=== PATIENT | male | born 1950 | race Caucasian/White ===

== ENCOUNTER 2017-10-14 18:25 | Inpatient (IN) ==
[2017-10-14] MEDS ORDERED: Morphine Inj 4 MG/ML Vial IV.PUSH ONE (18:30)
[2017-10-14] MEDS ORDERED: Sod Chloride 0.9% Inj 1,000 ML IV.SIG ONE (18:30)
--- NOTE | 2017-10-14 18:33 | ED ---
HPI General Chief Complaint: Abdominal Pain Stated Complaint: abd pain Time Seen by Provider: 10/14/17 18:30 Source: patient and EMS Mode of arrival: EMS Limitations: no limitations History of Present Illness HPI narrative: 66-year-old male patient with history of several days of coughing , not feeling well, diarrhea, presents to the ER brought in by EMS because of lower abdominal pains that he measures at a 10 out of 10 starting about 4 hours ago. He denies any vomiting, fevers, chest pains, or other symptoms. He does not know any exacerbating or relieving factors. Related Data Home Medications Medication Instructions Recorded Confirmed albuterol sulfate 0.63 mg INHALATION Q4-6H PRN 10/14/17 10/14/17 guaifenesin 200 mg PO DAILY 10/14/17 10/14/17 pseudoephedrine-guaifenesin 1 tab PO DAILY 10/14/17 10/14/17 [Mucinex D] tiotropium bromide [Spiriva with 1 cap INHALATION DAILY 10/14/17 10/14/17 HandiHaler] Allergies Allergy/AdvReac Type Severity Reaction Status Date / Time No Known Allergies Allergy Verified 10/14/17 19:56 Review of Systems ROS: all other systems reviewed are negative PMFSH History History Provided By: Patient Medical History Medical History COPD (chronic obstructive pulmonary disease) (Acute) Social History Social History Substance History: No History of Abuse Smoking Status: Current every day smoker Tobacco Type: Cigarettes How Often Do You Have a Drink Containing Alcohol: 2 to 4 times a month Recent Travel in [facility] within the Last 8 Weeks: No Exam Narrative Exam Narrative: GENERAL: Well-developed elderly white male patient currently in moderate distress. Awake and oriented 3. SKIN: Focused skin assessment warm/dry. HEAD: Atraumatic. Normocephalic. EYES: Pupils equal and round. No scleral icterus. No injection or drainage. ENT: No nasal bleeding or discharge. Mucous membranes pink and moist. NECK: Trachea midline. No JVD. CARDIOVASCULAR: Regular rate and rhythm. No murmur appreciated. RESPIRATORY: No accessory muscle use. Clear to auscultation. Breath sounds equal bilaterally. GASTROINTESTINAL: Abdomen soft, mild lower abdominal tenderness without guarding or rebound, nondistended. Hepatic and splenic margins not palpable. MUSCULOSKELETAL: No obvious deformities. No clubbing. No cyanosis. No edema. NEUROLOGICAL: Awake and alert. No obvious cranial nerve deficits. Motor grossly within normal limits. Normal speech. PSYCHIATRIC: Appropriate mood and affect; insight and judgment normal. Course Initial Documented Vital Signs Temperature 98.4 F 10/14/17 18:30 Pulse Rate 73 10/14/17 18:30 Respiratory Rate 18 10/14/17 18:30 Blood Pressure 187/71 H 10/14/17 18:30 Pulse Oximetry 95 10/14/17 18:30 Last Documented Vital Signs Temperature 98.4 F 10/14/17 18:30 Pulse Rate 73 10/14/17 18:42 Respiratory Rate 18 10/14/17 18:42 Blood Pressure 178/84 H 10/14/17 18:40 Pulse Oximetry 96 10/14/17 18:40 Medical Decision Making MDM Narrative Medical decision making narrative: Chest x-ray showing signs of a right basilar infiltrate questionable for underlying pneumonia. Lab work shows significant leukocytosis. CAT scan shows appendicitis. Case was discussed with Dr. Leslie who recommends patient be transferred to the main hospital for appendectomy. Patient is kept n.p.o. IV antibiotics were initiated for pneumonia after cultures have been drawn. Case was then discussed with Dr. Cook for admission. Differential Diagnosis Differential Diagnosis: Gastroenteritis versus diverticulitis versus UTI versus dehydration versus other acute intra-abdominal processes Lab Data Lab results reviewed: Yes I reviewed the patient's lab results. Result diagrams: 10/14/17 19:05 10/14/17 19:05 Lab Results 10/14/17 10/14/17 10/14/17 Range/Units 19:05 19:05 19:20 CBC w Diff Auto diff final WBC 14.7 H (4.0-11.0) th/mm3 RBC 4.83 (4.50-5.90) mil/mm3 Hgb 15.6 (13.0-17.0) gm/dL Hct 46.2 (39.0-51.0) % MCV 95.6 (80.0-100.0) fL MCH 32.3 (27.0-34.0) pg MCHC 33.8 (32.0-36.0) % RDW 13.2 (11.6-17.2) % Plt Count 242 (150-450) th/mm3 MPV 7.4 (7.0-11.0) fL Neut % (Auto) 91.7 H (16.0-70.0) % Lymph % (Auto) 3.8 L (9.0-44.0) % [place] % (Auto) 2.8 (0.0-8.0) % Eos % (Auto) 1.2 (0.0-4.0) % Baso % (Auto) 0.5 (0.0-2.0) % Neut # (Auto) 13.4 H (1.8-7.7) th/mm3 Lymph # (Auto) 0.6 L (1.0-4.8) th/mm3 [place]er # (Auto) 0.4 (0.0-0.9) th/mm3 Eos # (Auto) 0.2 (0.0-0.4) th/mm3 Baso # (Auto) 0.1 (0.0-0.2) th/mm3 WBC Differential . Differential Comment . Sodium 134 L (136-145) meq/L Potassium 4.3 (3.5-5.1) meq/L Chloride 97 L (98-107) meq/L Carbon Dioxide 29.0 (21.0-32.0) meq/L Anion Gap 8 (5-15) meq/L BUN 11 (7-18) mg/dL Creatinine 0.74 (0.60-1.30) mg/dL Estimated GFR Greater than 89 (>89) mL/min Random Glucose 114 H (74-106) mg/dL Calcium 9.2 (8.5-10.1) mg/dL Total Bilirubin 0.6 (0.2-1.0) mg/dL AST 20 (15-37) U/L ALT 21 (12-78) U/L Alkaline Phosphatase 82 (45-117) U/L Total Protein 7.5 (6.4-8.2) g/dL Albumin 3.6 (3.4-5.0) g/dL Lipase 49 L (73-393) U/L Urine Color Yellow (Yellw/Straw) Urine Clarity Clear (Clear) Urine pH 6.0 (5.0-8.5) Ur Specific [place] 1.025 (1.002-1.035) Urine Protein Negative (Neg-Trace) mg/dL Urine Glucose (UA) Negative (Negative) mg/dL Urine Ketones 80 or greater (Negative) mg/dL Urine Occult Blood Trace (Negative) Urine Nitrate Negative (Negative) Urine Bilirubin Negative (Negative) Urine Urobilinogen 0.2 (Less than 2) mg/dL Ur Leukocyte Esterase Negative (Negative) Urine RBC 0-3 (0-3) /hpf Urine WBC 0-5 (0-5) /hpf Ur Squamous Epith Cells 0-5 (0-5) /hpf Micro UA Comment Culture not ind Urine Culture Comments Culture not ind Imaging Data Attestation: I personally reviewed and interpreted this imaging study as follows : Radiologist's impression: Abdomen/Pelvis CT 10/14/17 18:30 CONCLUSION: 1. Abnormal appearance of the appendix indicating acute appendicitis. No evidence of abscess or free air. 2. Lower lobe bronchiectasis and tree-in-bud opacity of the lungs. Findings may represent atypical mycobacterial infection, age-indeterminate or chronic aspiration. 3. Pars interarticularis defects of L5. 4. Mild distal abdominal aortic aneurysm. Chest X-Ray 10/14/17 18:30 CONCLUSION: Mild right lung base parenchymal opacity indicating mild consolidation versus atelectasis. ECG Data Attestation: I personally reviewed and interpreted this ECG as follows: Interpretation: EKG shows normal sinus rhythm at a rate of [address] elevations or depressions. Discharge Plan Discharge Disposition Patient Disposition: 30 Still Patient Discharge Condition Condition: Stable Discharge Details Anticipated Discharge Date: 10/14/17 Diagnosis: Acute appendicitis, Pneumonia Physicians Team ED Provider: Carmenza Newby Primary Care Provider: [facility],Physician 's Rxs /Orders / Referrals /Forms Prescriptions: No Action albuterol sulfate 0.63 mg/3 mL Solution For Nebulization 0.63 mg INHALATION Q4-6H PRN (Reason: Shortness Of Breath) RF: 0 pseudoephedrine-guaifenesin [Mucinex D] 60-600 mg Tablet Extended Release 12 Hr 1 tab PO DAILY RF: 0 tiotropium bromide [Spiriva with HandiHaler] 18 mcg Capsule, W/Inhalation Device 1 cap INHALATION DAILY RF: 0 guaifenesin 200 mg Tablet 200 mg PO DAILY RF: 0 Discharge Interventions Interventions: Vital Signs Last Done: 10/14/17 18:40 Status ED Status: With Doctor
[2017-10-14 19:13] LABS: Baso # (Auto) 0.1 th/mm3 (0.0-0.2); Baso % (Auto) 0.5 % (0.0-2.0); Eos # (Auto) 0.2 th/mm3 (0.0-0.4); Eos % (Auto) 1.2 % (0.0-4.0); Hematocrit 46.2 % (39.0-51.0); Hemoglobin 15.6 gm/dL (13.0-17.0); Lymph # (Auto) 0.6 th/mm3 (1.0-4.8); Lymph % (Auto) 3.8 % (9.0-44.0); Mean Corpuscular HGB Conc 33.8 % (32.0-36.0); Mean Corpuscular Hemoglobin 32.3 pg (27.0-34.0); Mean Corpuscular Volume 95.6 fL (80.0-100.0); Mean Platelet Volume 7.4 fL (7.0-11.0); Mono # (Auto) 0.4 th/mm3 (0.0-0.9); Mono % (Auto) 2.8 % (0.0-8.0); Neut # (Auto) 13.4 th/mm3 (1.8-7.7); Neut % (Auto) 91.7 % (16.0-70.0); Platelet Count 242 th/mm3 (150-450); Red Blood Count 4.83 mil/mm3 (4.50-5.90); Red Cell Distribution Width 13.2 % (11.6-17.2); White Blood Count 14.7 th/mm3 (4.0-11.0)
--- NOTE | 2017-10-14 19:15 | XR ---
EXAM DATE: 10/14/2017 6:59 PM EDT AGE/SEX: 66 years / Male INDICATIONS: Short of breath, cough CLINICAL DATA: This is the patient's initial encounter. Patient reports that signs and symptoms have been present for 1 day and indicates a pain score of 0/10. MEDICAL/SURGICAL HISTORY: Chronic obstructive pulmonary disease. None. COMPARISON: [facility], CHEST SINGLE AP, 06/04/2012. . FINDINGS: 2 AP views of the chest. Mild patchy opacity at the right lung base indicating mild consolidation or atelectasis. Lungs otherwise clear. Cardiomediastinal silhouette within normal limits. No evidence of pleural effusion or pneumothorax. CONCLUSION: Mild right lung base parenchymal opacity indicating mild consolidation versus atelectasis. Electronically signed by: Adam Vaelntin MD 10/14/2017 7:14 PM EDT
[2017-10-14 19:20] LABS: Chloride 97 meq/L (98-107); Potassium 4.3 meq/L (3.5-5.1); Sodium 134 meq/L (136-145)
[2017-10-14 19:23] LABS: Calcium 9.2 mg/dL (8.5-10.1)
[2017-10-14 19:24] LABS: Albumin 3.6 g/dL (3.4-5.0); Anion Gap 8 meq/L (5-15); Blood Urea Nitrogen 11 mg/dL (7-18); Glucose,Random 114 mg/dL (74-106); Lipase 49 U/L (73-393)
[2017-10-14 19:26] LABS: Alanine Aminotransferase 21 U/L (12-78)
[2017-10-14 19:27] LABS: Aspartate Aminotransferase 20 U/L (15-37); Glomerular Filtration Rate Greater Than 89 mL/min (>89)
[2017-10-14 19:28] LABS: Total Protein 7.5 g/dL (6.4-8.2)
[2017-10-14 19:29] LABS: Alkaline Phosphatase 82 U/L (45-117)
[2017-10-14 19:51] LABS: Bilirubin,Urine Negative (Negative); Clarity,Urine Clear (Clear); Color,Urine Yellow (Yellw/Straw); Glucose,Urine (UA) Negative (Negative); Leukocyte Esterase,Urine Negative (Negative); Nitrite,Urine Negative (Negative); Specific Gravity,Urine 1.025 (1.002-1.035); Urobilinogen,Urine 0.2 mg/dL (Less than 2)
[2017-10-14 19:59] LABS: RBC,Urine 0-3 /hpf (0-3)
[2017-10-14 20:00] LABS: Squamous Epithelial Cell,Urine 0-5 /hpf (0-5); WBC,Urine 0-5 /hpf (0-5)
--- NOTE | 2017-10-14 20:55 | CT ---
EXAM DATE: 10/14/2017 8:30 PM EDT AGE/SEX: 66 years / Male INDICATIONS: Abdomen pain. CLINICAL DATA: This is the patient's initial encounter. Patient reports that signs and symptoms have been present for 1 day and indicates a pain score of 6/10. MEDICAL/SURGICAL HISTORY: Chronic obstructive pulmonary disease. None. ORAL CONTRAST: No oral contrast ingested. RADIATION DOSE: 12.05 CTDI (mGy) COMPARISON: No prior exams available for comparison. TECHNIQUE: Multiple contiguous axial images were obtained through the abdomen and pelvis following b olus infusion of 80 ml Omnipaque 350 (iohexol) nonionic water-soluble contrast as a single exam dos e. No oral contrast ingested. Using automated exposure control and adjustment of the mA and/or kV ac cording to patient size, radiation dose was kept as low as reasonably achievable to obtain optimal di agnostic quality images. DICOM format image data is available electronically for review and comparis on. FINDINGS: Lower Lungs: Mild bronchiectasis and tree in body opacity of the lower lobes bilaterally. Liver: The liver has a homogeneous density without space-occupying lesion. There is no dilation of th e biliary tree. Spleen: Homogeneous density without enlargement. Pancreas: Unremarkable without mass or calcification. Kidneys: Within normal limits. Adrenal Glands: Unremarkable. Aorta: Diffuse aortic calcification and aortic atherosclerotic plaque. Mild relative dilatation of the distal abdominal aorta indicating mild abdominal aortic aneurysm measuring 3.0 cm in AP dimension . Bowel/Mesentery: There is an appendicolith within the proximal cecal appendix. Fluid-filled appendix extends medially from the tip of the cecum. It measures 11 mm in diameter and there is adjacent mild inflammatory stranding. No evidence of abscess or free air. No bowel dilatation. Abdominal Wall: Intact. Retroperitoneum: No evidence of adenopathy in the retrocrural, para-aortic, or deep pelvic regions. Bladder: Contours are smooth. Reproductive Organs: Prostate is enlarged measuring 6 cm in medial to lateral dimension. Inguinal: The inguinal region is unremarkable without evidence of adenopathy. Bony Structures: Pars interarticularis defects and spondylolisthesis at L5-S1. CONCLUSION: 1. Abnormal appearance of the appendix indicating acute appendicitis. No evidence of abscess or free air. 2. Lower lobe bronchiectasis and tree-in-bud opacity of the lungs. Findings may represent atypical m ycobacterial infection, age-indeterminate or chronic aspiration. 3. Pars interarticularis defects of L5. 4. Mild distal abdominal aortic aneurysm. Electronically signed by: Adam Valentin MD 10/14/2017 8:53 PM EDT
[2017-10-14] MEDS ORDERED: Azithromycin Inj 500 MG in Sodium Chlor 0.9% Inj 250 ML IV.SIG ONE (21:01)
[2017-10-14] MEDS ORDERED: Morphine Inj 4 MG/ML Vial IV.PUSH PRN (23:12)
[2017-10-15] MEDS ORDERED: Sugammadex Inj 200 MG/2 ML Vial IV.PUSH ONE (03:53)
[2017-10-15] MEDS ORDERED: RESP: Albuterol Concentrated 2.5 MG/0.5 ML Neb ONE (03:53)
--- NOTE | 2017-10-15 04:29 | P.OP ---
- Preoperative Diagnosis (1) Acute appendicitis - Postoperative Diagnosis (1) Acute appendicitis Date of procedure: 10/15/17 Procedure: lap appy Anesthesia: GETA Surgeon: Alec Leslie MD Estimated blood loss (mL): 2 Pathology: other (appy) Operation and Findings: distended inflamed appendix
--- NOTE | 2017-10-15 04:36 | MB ---
cc: Alec Leslie MD DATE: 10/15/2017 CHIEF COMPLAINT: Abdominal pain, acute appendicitis. HISTORY OF PRESENT ILLNESS: The patient is a 66-year-old male with several medical issues including COPD and hypertension, who presents with a complaint of abdominal pain. He notes the pain started approximately 24 hours ago and continue to get worse, initially diffuse, now located in the right lower quadrant and right side. He states the pain is an 8/10, at its worst a 10/10, some improvement with IV pain medication. He states it is worse with movement and better with lying still. He has associated diarrhea and cough as well. He denied any fevers. He came to the emergency department for further evaluation including WBC of 14,[address] scan showing acute appendicitis, along with pleural effusion. Surgery consulted. PAST MEDICAL HISTORY: Basal cell skin cancer, COPD, hypertension. PAST SURGICAL HISTORY: Excision of basal cell tonsils. MEDICATIONS: See EMR. SOCIAL HISTORY: Positive smoking. Positive ETOH. Denies IVDA ALLERGIES: NO KNOWN DRUG ALLERGIES. FAMILY HISTORY: Denies diabetes or hypertension. REVIEW OF SYSTEMS: GENERAL: Denies fevers or chills. HEENT: Denies eye pain or ear pain. NECK: Denies swelling or pain. LUNGS: Denies wheeze. Complains of cough. CHEST: Denies tachycardia, chest pain. ABDOMEN: Complains of abdominal pain and nausea. GENITOURINARY: Denies dysuria or hematuria. ENDOCRINE: Denies polyuria or polydipsia. INTEGUMENT: Denies any masses or lesions. PSYCHIATRIC: Denies any change in judgment. PHYSICAL EXAMINATION: GENERAL: No acute distress. VITAL SIGNS: Temperature 98.4, pulse 73, respirations 18, blood pressure 187/71, saturation 95%. HEENT: Pupils equal, round and reactive. NECK: Supple. Trachea midline. LUNGS: Clear to auscultation, bilateral expansion. HEART: S1, S2. Regular. ABDOMEN: Soft. Positive tenderness to palpation in the right lower quadrant, localized rebound. No guarding. EXTREMITIES: Warm and well perfused, 2+ pulses in all extremities. NEUROLOGIC: GCS 15, 5/5 motor in all extremities. PSYCHIATRIC: Appropriate insight. Appropriate judgment. LABORATORY AND DIAGNOSTIC DATA: WBC 14.7, hemoglobin 15.6, hematocrit 46.6, platelets 242. Sodium 134, potassium 4.3, chloride 97, BUN 11, creatinine 0.7, glucose 114, lipase 49. CT reviewed by myself showing acute appendicitis. No free air. No free fluid. Bronchial tree opacities, mild distal aortic aneurysm. ASSESSMENT: The patient is a 66-year-old male with acute appendicitis. PLAN: After a full clinical, radiologic and laboratory workup, the patient with the above-noted issues. At this point, the patient will be taken to the OR for laparoscopic appendectomy. Discussed with the patient in detail. IV fluids, pain control, IV antibiotics. The patient will be n.p.o. Thank you for the consultation. MD RAFAEL Vyas/jamel , 03:28 AM , 03:37 AM
[2017-10-15] MEDS ORDERED: Morphine Inj 4 MG/ML Vial IM PRN (04:45)
[2017-10-15] MEDS ORDERED: fentaNYL Citrate Inj 100 MCG/2 ML Ampul ONE (04:57)
[2017-10-15] MEDS: Piperacil/Tazo 3.375 GM Premix 50 ML IV.SIG SCH ×4 (05:44→21:48)
[2017-10-15] MEDS ORDERED: Tiotropium Bromide 18 MCG/ACT Inhaler INH SCH (10:00)
[2017-10-15] MEDS ORDERED: Lisinopril 10 MG Tablet PO SCH (10:30)
[2017-10-15] MEDS ORDERED: Metoprolol Inj 5 MG/5 ML Vial IV.PUSH ONE (12:00)
[2017-10-15] MEDS ORDERED: Phenylephrine/NS 1000 MCG/10ML Syringe IV.PUSH ONE (12:00)
[2017-10-15] MEDS ORDERED: Succinylcholine Inj 100 MG/5 ML Syringe IV.PUSH ONE (12:00)
[2017-10-15] MEDS ORDERED: Lidocaine PF 1% Inj 5 ML Syringe INFILTRATN ONE (12:00)
--- NOTE | 2017-10-15 15:55 | P.HPIM ---
History of Present Illness Primary Care Physician: [facility] Chief Complaint: Abdominal pain History of Present Illness: The patient is a 66-year-old male with a past medical history of COPD on home oxygen who is presenting to the hospital with severe abdominal pain. He states that yesterday in the middle of the day he developed sudden and severe abdominal pain. He said the location was below the bellybutton. He rated the pain as a 10 out of 10 in severity. He said the pain was constant in nature. He said that he doubled over and was unable to do anything. He called 911 at that time. He states that he has been having associated diarrhea. He says for the past 2 days he has not had much of an appetite and has felt full quickly. He also states he has been experiencing cold-like symptoms over the past couple of days. In the emergency department he was found to have acute appendicitis and taken for emergent surgery. He currently has some pain at the incision sites. He is looking forward to advancing his diet from a clear liquid diet. He states he is on home oxygen 24 hours a day. He states he has chronic prostate problems and wakes up multiple times in the evening to urinate. - Diagnosis (1) Acute appendicitis Inpatient Certification: I certify that the inpatient services were ordered in accordance with Medicare regulations governing the order. This includes certification that hospital inpatient services are reasonable and necessary and in the case of services not specified as inpatient-only under 42 CFR 419.22(n), that they are appropriately provided as inpatient services in accordance to with the 2-midnight benchmark under 43 CFR 412.3(e) Estimated Total Length of Stay (Days): 2 Plans for Post Hospital Care: Home Review of Systems All other systems reviewed negative except as [facility] - History History Provided By: Patient - Medical History Medical History: Medical History (Last Updated 10/15/17 @ 15:44 by Bob Hill DO) BPH (benign prostatic hyperplasia) Basal cell carcinoma COPD (chronic obstructive pulmonary disease) - Surgical History Surgical History: Surgical History (Last Updated 10/15/17 @ 15:45 by Bob Hill DO) Hx of tonsillectomy - Family History Family History: Family History (Last Updated 10/15/17 @ 15:45 by Bob Hill DO) Other Patient denies significant medical history - Tobacco History Second Hand Smoke Exposure: No Tobacco Use In Past 30 Days: Yes Smoking Status: Current every day smoker Tobacco Type: Cigarettes - Alcohol History How Often Do You Have a Drink Containing Alcohol: 2 to 3 times a week - Substance Use History Substance History: No History of Abuse - Travel History Recent Travel in the [place] Within the Last 8 Weeks: No Recent Travel Out of the Country Within the Last 8 Weeks: No - Immunization History Tetanus Immunization: Unable to Assess Hx Influenza Vaccine This Season: Unable to Assess Medications and Allergies Active Medications: Active Medications Albuterol (Duoneb Neb (Prn)) 1 ampul NEB Q2HR NEB PRN PRN Reason: DYSPNEA Last Admin: 10/15/17 11:32 Dose: 1 ampul Albuterol (Duoneb Neb (Tucker)) 1 ampul NEB Q6HR WHILE AWAKE NEB TUCKER Clonidine HCl (Catapres) 0.1 mg PO Q6H PRN PRN Reason: SBP>160, DBP>90 Piperacillin/Tazobactam/Dextrose (Zosyn 3.375 Gm Premix) 50 mls @ 100 mls/hr IV.SIG Q6H TUCKER Last Infusion: 10/15/17 12:34 Dose: Infused Lisinopril (Prinivil) 10 mg PO DAILY TUCKER Last Admin: 10/15/17 11:09 Dose: 10 mg Methylprednisolone Sodium Succinate (Solumedrol Inj) 40 mg IV.PUSH Q8HR [facility] Miscellaneous Information ([facility] [place] [facility]) 1 each OTHER UNSCH PRN PRN Reason: SEE LABEL COMMENTS Stop: 10/16/17 05:13 Morphine Sulfate (Morphine Inj) 4 mg IV.PUSH Q4H PRN PRN Reason: pain 6-10 Last Admin: 10/14/17 23:24 Dose: 4 mg Morphine Sulfate (Morphine Inj) 2 mg IM Q4H PRN PRN Reason: PAIN SCALE 6 TO 10 Oxycodone/Acetaminophen (Percocet 5/325 Mg) 1 tab PO Q4H PRN PRN Reason: PAIN SCALE 1 TO 5 Sodium Chloride (Ns Flush) 2 ml IV.FLUSH PRN PRN PRN Reason: FLUSH AFTER USING IV ACCESS Last Admin: 10/14/17 21:17 Dose: 2 ml Tamsulosin HCl (Flomax) 0.4 mg PO DAILY [facility] Allergies Allergy/AdvReac Type Severity Reaction Status Date / Time No Known Allergies Allergy Verified 10/14/17 19:56 Home Medications Medication Instructions Recorded Confirmed Type albuterol sulfate 0.63 mg INHALATION Q4-6H PRN 10/14/17 10/14/17 History guaifenesin 200 mg PO DAILY 10/14/17 10/14/17 History pseudoephedrine-guaifenesin 1 tab PO DAILY 10/14/17 10/14/17 History [Mucinex D] tiotropium bromide [Spiriva with 1 cap INHALATION DAILY 10/14/17 10/14/17 History HandiHaler] Exam Vital signs: Vital Signs 10/14/17 18:30 10/14/17 18:34 10/14/17 18:40 Temperature 98.4 F Pulse Rate 73 72 Respiratory Rate 18 18 Blood Pressure 187/71 H 178/84 H Pulse Oximetry 95 95 96 10/14/17 18:42 10/14/17 19:40 10/14/17 20:00 Temperature Pulse Rate 73 90 Respiratory Rate 18 18 18 Blood Pressure 188/89 H Pulse Oximetry 95 10/14/17 20:40 10/14/17 21:10 10/14/17 22:10 Temperature Pulse Rate 82 76 Respiratory Rate 18 18 Blood Pressure 188/90 H 180/71 H Pulse Oximetry 95 92 L 96 10/14/17 22:19 10/14/17 23:45 10/15/17 00:20 Temperature 99.0 F Pulse Rate 94 H Respiratory Rate 16 18 Blood Pressure 174/100 H Pulse Oximetry 96 93 L 10/15/17 01:40 10/15/17 02:00 10/15/17 05:00 Temperature 98.9 F 98.5 F Pulse Rate 94 H 100 H 95 H Respiratory Rate 18 14 14 Blood Pressure 180/85 H 172/90 H 115/55 L Pulse Oximetry 94 L 92 L 95 10/15/17 05:07 10/15/17 05:15 10/15/17 05:30 Temperature 98.5 F 98.5 F 98.5 F Pulse Rate 92 H 91 H 97 H Respiratory Rate 14 14 14 Blood Pressure 151/67 H 115/57 L 137/64 Pulse Oximetry 100 92 L 93 L 10/15/17 05:53 10/15/17 05:57 10/15/17 06:24 Temperature 98.5 F 98.1 F Pulse Rate 94 H 92 H Respiratory Rate 14 20 Blood Pressure 138/66 149/65 H Pulse Oximetry 92 L 93 L 92 L 10/15/17 08:00 10/15/17 11:32 10/15/17 11:34 Temperature 97.4 F L Pulse Rate 88 83 Respiratory Rate 19 19 Blood Pressure 190/91 H Pulse Oximetry 91 L 93 L 10/15/17 12:00 Temperature 97.4 F L Pulse Rate 102 H Respiratory Rate 20 Blood Pressure 202/100 H Pulse Oximetry 90 L Intake & Output 10/14/17 10/15/17 10/15/17 18:59 06:59 18:59 Intake Total 2900 / 2900 50 / 50 Output Total 120 / 120 1100 / 1100 Balance 2780 / 2780 -1050 / -1050 Weight 83.915 kg Intake: IV 1400 / 1400 50 / 50 Azithromycin Inj 500 MG In NS 250 / 250 Inj 250 ML @ 250 mls/hr IV.SIG ONCE ONE Rx#:[id number] Zosyn 3.375 GM Premix 50 ML @ 50 / 50 50 / 50 100 mls/hr IV.SIG Q6H TUCKER Rx#: [id number] NS Inj 1,000 ML @ Wide Open IV. 1000 / 1000 SIG BOLUS ONE Rx#:[id number] Rocephin Inj 1,000 MG In NS Inj 100 / 100 100 ML @ 200 mls/hr IV.SIG ONCE ONE Rx#:[id number] Anesthesia Amount 1500 / 1500 Output: Urine 100 / 100 Estimated Blood Loss 20 / 20 Urine Amount (Catheter) 1100 / 1100 Straight 1100 / 1100 Other: Weight On Admission 88.3 kg Narrative: GENERAL: Well-developed, no distress. SKIN: Focused skin assessment warm/dry. HEAD: Atraumatic. Normocephalic. EYES: Pupils equal and round. No scleral icterus. No injection or drainage. ENT: No nasal bleeding or discharge. Mucous membranes pink and moist. NECK: Trachea midline. No JVD. CARDIOVASCULAR: Regular rate and rhythm. No murmur appreciated. RESPIRATORY: Diffuse wheezing. GASTROINTESTINAL: Abdomen soft, nontender. Incisions noted. MUSCULOSKELETAL: No obvious deformities. No clubbing. No cyanosis. No edema. NEUROLOGICAL: Awake and alert. No obvious cranial nerve deficits. Motor grossly within normal limits. Normal speech. PSYCHIATRIC: Appropriate mood and affect; insight and judgment normal. Results - Labs CBC & Chem 7: 10/14/17 19:05 10/14/17 19:05 Labs: Short CBC 10/14/17 Range/Units 19:05 WBC 14.7 H (4.0-11.0) th/mm3 Hgb 15.6 (13.0-17.0) gm/dL Hct 46.2 (39.0-51.0) % Plt Count 242 (150-450) th/mm3 BMP 10/14/17 19:05 Sodium 134 L Potassium 4.3 Chloride 97 L Carbon Dioxide 29.0 BUN 11 Creatinine 0.74 Calcium 9.2 Liver Function 10/14/17 Range/Units 19:05 Total Bilirubin 0.6 (0.2-1.0) mg/dL AST 20 (15-37) U/L ALT 21 (12-78) U/L Alkaline Phosphatase 82 (45-117) U/L Albumin 3.6 (3.4-5.0) g/dL Urine 10/14/17 Range/Units 19:20 Urine Color Yellow (Yellw/Straw) Urine Clarity Clear (Clear) Urine pH 6.0 (5.0-8.5) Ur Specific Alexander 1.025 (1.002-1.035) Urine Protein Negative (Neg-Trace) mg/dL Urine Glucose (UA) Negative (Negative) mg/dL - Imaging Impressions Abdomen/Pelvis CT 10/14/17 18:30 CONCLUSION: 1. Abnormal appearance of the appendix indicating acute appendicitis. No evidence of abscess or free air. 2. Lower lobe bronchiectasis and tree-in-bud opacity of the lungs. Findings may represent atypical mycobacterial infection, age-indeterminate or chronic aspiration. 3. Pars interarticularis defects of L5. 4. Mild distal abdominal aortic aneurysm. Chest X-Ray 10/14/17 18:30 CONCLUSION: Mild right lung base parenchymal opacity indicating mild consolidation versus atelectasis. Caprini VTE Risk Assessment Caprini VTE Risk Assessment: No/Low Risk (score <= 1) Caprini Risk Assessment Model: Point Value = 1 Point Value = 2 Point Value = 3 Point Value = 5 Age 41-60 Minor surgery BMI > 25 kg/m2 Swollen legs Varicose veins or History of unexplained or recurrent spontaneous Oral contraceptives or hormone replacement Sepsis (< 1 month) Serious lung disease, including pneumonia (< 1 month) Abnormal pulmonary function Acute myocardial infarction Congestive heart failure (< 1 month) History of inflammatory bowel disease Medical patient at bed rest Age 61-74 Arthroscopic surgery Major open surgery (> 45 min) Laparoscopic surgery (> 45 min) Malignancy Confined to bed (> 72 hours) Immobilizing plaster cast Central venous access Age >= 75 History of VTE Family history of VTE Factor V Leiden Prothrombin [id number] Lupus anticoagulant Anticardiolipin antibodies Elevated serum homocysteine Heparin-induced thrombocytopenia Other congenital or acquired thrombophilia Stroke (< 1 month) Elective arthroplasty Hip, pelvis, or leg fracture Acute spinal cord injury (< 1 month) Prophylaxis Regimen: Total Risk Factor Score Risk Level Prophylaxis Regimen 0-1 Low Early ambulation 2 Moderate Order ONE of the following: *Sequential Compression Device (SCD) *Heparin 5000 units SQ BID 3-4 Higher Order ONE of the following medications: *Heparin 5000 units SQ TID *Enoxaparin/Lovenox 40 mg SQ daily (WT < 150 kg, CrCl > 30 mL/min) *Enoxaparin/Lovenox 30 mg SQ daily (WT < 150 kg, CrCl > 10-29 mL/min) *Enoxaparin/Lovenox 30 mg SQ BID (WT < 150 kg, CrCl > 30 mL/min) AND/OR *Sequential Compression Device (SCD) 5 or more Highest Order ONE of the following medications: *Heparin 5000 units SQ TID (Preferred with Epidurals) *Enoxaparin/Lovenox 40 mg SQ daily (WT < 150 kg, CrCl > 30 mL/min) *Enoxaparin/Lovenox 30 mg SQ daily (WT < 150 kg, CrCl > 10-29 mL/min) *Enoxaparin/Lovenox 30 mg SQ BID (WT < 150 kg, CrCl > 30 mL/min) AND *Sequential Compression Device (SCD) Assessment and Plan - Assessment (1) Acute appendicitis Code(s): K35.80 - Unspecified acute appendicitis Status: Acute - Plan Acute appendicitis Noted on CT scan. Surgery was consulted and pt is s/p appendectomy. - management per surgery. - pain control. Acute on chronic COPD exacerbation The pt is on home oxygen. Has diffuse wheezing on exam. CXR with ? of right consolidation. - standing and as needed nebs. Hold Spiriva. - continue IV antibiotics. - IV Solumedrol. - incentive spirometry, encourage ambulation. HTN Uncontrolled. Exacerbated by appendicitis. - lisinopril 20 mg daily. Adjust as needed. - clonidine as needed. Urinary retention The pt has a history of prostate problems. - straight cath as needed. - Flomax. PPx: Per surgery Code Status: Full
[2017-10-15] MEDS ORDERED: Lisinopril 10 MG Tablet PO ONE (16:00)
[2017-10-15 16:27] LABS: Baso % (Auto) 0.3 % (0.0-2.0); Hematocrit 43.3 % (39.0-51.0); Hemoglobin 14.8 gm/dL (13.0-17.0); Lymph # (Auto) 0.7 th/mm3 (1.0-4.8); Lymph % (Auto) 5.4 % (9.0-44.0); Mean Corpuscular HGB Conc 34.2 % (32.0-36.0); Mean Corpuscular Hemoglobin 32.5 pg (27.0-34.0); Mean Platelet Volume 8.1 fL (7.0-11.0); Mono # (Auto) 0.7 th/mm3 (0.0-0.9); Mono % (Auto) 5.3 % (0.0-8.0); Neut # (Auto) 10.9 th/mm3 (1.8-7.7); Platelet Count 226 th/mm3 (150-450); Red Blood Count 4.55 mil/mm3 (4.50-5.90); Red Cell Distribution Width 13.8 % (11.6-17.2); White Blood Count 12.3 th/mm3 (4.0-11.0)
--- NOTE | 2017-10-15 16:35 | ECG ---
Date Performed: 10/14/2017 Time Performed: 18:37:52 PTAGE: 66 years EKG: Sinus rhythm MARKED LEFT AXIS DEVIATION ABNORMAL ECG PREVIOUS TRACING : 03/09/2013 21.17 WHEN COMPARED TO PRIOR EKG THERE IS A NEW LEFT AXIS DEVIATI ON WITH LEFT ANTERIOR HEMIBLOCK. DOCTOR: Anna Galeano Interpretating Date/Time 10/15/2017 16:35:28
[2017-10-15 16:57] LABS: Alanine Aminotransferase 21 U/L (12-78); Albumin 3.1 g/dL (3.4-5.0); Alkaline Phosphatase 68 U/L (45-117); Anion Gap 6 meq/L (5-15); Aspartate Aminotransferase 23 U/L (15-37); Blood Urea Nitrogen 11 mg/dL (7-18); Calcium 8.7 mg/dL (8.5-10.1); Carbon Dioxide 32.7 meq/L (21.0-32.0); Chloride 100 meq/L (98-107); Glomerular Filtration Rate 84 mL/min (>89); Glucose,Random 106 mg/dL (74-106); Potassium 4.4 meq/L (3.5-5.1); Sodium 139 meq/L (136-145); Total Protein 6.6 g/dL (6.4-8.2)
[2017-10-15] MEDS: MethylPREDNISolone Sod Succinate Inj 40 MG/ML Vial IV.PUSH SCH ×2 (17:03→21:48)
[2017-10-16] MEDS: Piperacil/Tazo 3.375 GM Premix 50 ML IV.SIG SCH (05:51)
[2017-10-16] MEDS: MethylPREDNISolone Sod Succinate Inj 40 MG/ML Vial IV.PUSH SCH (05:51)
[2017-10-16 07:10] LABS: Hematocrit 42.3 % (39.0-51.0); Hemoglobin 14.1 gm/dL (13.0-17.0); Mean Corpuscular HGB Conc 33.4 % (32.0-36.0); Mean Corpuscular Hemoglobin 32.3 pg (27.0-34.0); Mean Corpuscular Volume 96.7 fL (80.0-100.0); Mean Platelet Volume 8.1 fL (7.0-11.0); Platelet Count 189 th/mm3 (150-450); Red Blood Count 4.37 mil/mm3 (4.50-5.90); Red Cell Distribution Width 13.8 % (11.6-17.2)
[2017-10-16 07:50] LABS: Calcium 8.6 mg/dL (8.5-10.1); Carbon Dioxide 33.8 meq/L (21.0-32.0); Potassium 4.2 meq/L (3.5-5.1)
[2017-10-16 08:12] VITALS: BP 126/62; RESP 16; TEMP 97.2
[2017-10-16 08:13] VITALS: PULSE 99; O2SAT 94
[2017-10-16] MEDS ORDERED: Lisinopril 20 MG Tablet PO SCH (09:00)
--- NOTE | 2017-10-16 09:04 | P.PNIM ---
Subjective Interval history: The patient said that he had very good stream of urination this morning. He said that his breathing was not as good as it could be because he was not on all of his home medications. He said his pain was well controlled. He wanted to go home. Discussed with surgery. Physical Exam Vital signs: Vital Signs 10/15/17 11:32 10/15/17 11:34 10/15/17 12:00 Temperature 97.4 F L Pulse Rate 83 102 H Respiratory Rate 19 20 Blood Pressure 202/100 H Pulse Oximetry 93 L 90 L 10/15/17 16:00 10/15/17 19:57 10/15/17 20:00 Temperature 98.0 F 97.8 F Pulse Rate 96 H 96 H 92 H Respiratory Rate 17 18 19 Blood Pressure 152/70 H 130/62 Pulse Oximetry 94 L 94 L 10/16/17 08:00 10/16/17 08:11 Temperature 97.2 F L Pulse Rate 67 99 H Respiratory Rate 16 16 Blood Pressure 126/62 Pulse Oximetry 95 94 L Intake & Output 10/15/17 10/16/17 10/16/17 18:59 06:59 18:59 Intake Total 100 / 100 50 / 50 50 / 50 Output Total 1100 / 1100 350 / 350 Balance -1000 / -1000 -300 / -300 50 / 50 Intake: IV 100 / 100 50 / 50 50 / 50 Zosyn 3.375 GM Premix 50 ML @ 100 / 100 50 / 50 50 / 50 100 mls/hr IV.SIG Q6H SHIV Rx#: [id number] Output: Urine 350 / 350 Urine Amount (Catheter) 1100 / 1100 Straight 1100 / 1100 Narrative: GENERAL: Well-developed, no distress. SKIN: Focused skin assessment warm/dry. HEAD: Atraumatic. Normocephalic. EYES: Pupils equal and round. No scleral icterus. No injection or drainage. ENT: No nasal bleeding or discharge. Mucous membranes pink and moist. NECK: Trachea midline. No JVD. CARDIOVASCULAR: Regular rate and rhythm. No murmur appreciated. RESPIRATORY: Diffuse wheezing. GASTROINTESTINAL: Abdomen soft, nontender. Incisions noted. MUSCULOSKELETAL: No obvious deformities. No clubbing. No cyanosis. No edema. NEUROLOGICAL: Awake and alert. No obvious cranial nerve deficits. Motor grossly within normal limits. Normal speech. PSYCHIATRIC: Appropriate mood and affect; insight and judgment normal. - Urinary Catheter Management Straight Cath placed during this visit: yes, but has since been removed by the nurse Reason for continuing: Not indwelling catheter Insertion date: 10/15/17 Insertion time: 16:00 Removal date: 10/15/17 Removal time: 16:20 Results - Labs CBC & Chem 7: 10/16/17 06:18 10/16/17 06:18 Laboratory Results - last 24 hr 10/15/17 10/15/17 10/16/17 16:02 16:02 06:18 WBC 12.3 H 10.0 RBC 4.55 4.37 L Hgb 14.8 14.1 Hct 43.3 42.3 MCV 95.0 96.7 MCH 32.5 32.3 MCHC 34.2 33.4 RDW 13.8 13.8 Plt Count 226 189 MPV 8.1 8.1 Neut % (Auto) 89.0 H Lymph % (Auto) 5.4 L Martin % (Auto) 5.3 Eos % (Auto) 0.0 Baso % (Auto) 0.3 Neut # (Auto) 10.9 H Lymph # (Auto) 0.7 L Martin # (Auto) 0.7 Eos # (Auto) 0.0 Baso # (Auto) 0.0 WBC Differential . Differential Comment Auto diff final Sodium 139 Potassium 4.4 Chloride 100 Carbon Dioxide 32.7 H Anion Gap 6 BUN 11 Creatinine 0.90 Estimated GFR 84 L Random Glucose 106 Calcium 8.7 Total Bilirubin 0.4 AST 23 ALT 21 Alkaline Phosphatase 68 Total Protein 6.6 D Albumin 3.1 L 10/16/17 06:18 WBC RBC Hgb Hct MCV MCH MCHC RDW Plt Count MPV Neut % (Auto) Lymph % (Auto) Martin % (Auto) Eos % (Auto) Baso % (Auto) Neut # (Auto) Lymph # (Auto) Martin # (Auto) Eos # (Auto) Baso # (Auto) WBC Differential Differential Comment Sodium 140 Potassium 4.2 Chloride 101 Carbon Dioxide 33.8 H Anion Gap 5 BUN 23 H Creatinine 0.89 Estimated GFR 85 L Random Glucose 118 H Calcium 8.6 Total Bilirubin AST ALT Alkaline Phosphatase Total Protein Albumin Microbiology 10/14/17 21:25 Blood - Peripheral Aerobic Blood Culture - Preliminary No growth in 1 day 10/14/17 21:25 Blood - Peripheral Anaerobic Blood Culture - Preliminary No growth in 1 day 10/14/17 21:18 Blood - Peripheral Aerobic Blood Culture - Preliminary No growth in 1 day 10/14/17 21:18 Blood - Peripheral Anaerobic Blood Culture - Preliminary No growth in 1 day Assessment and Plan - Assessment (1) Acute appendicitis Code(s): K35.80 - Unspecified acute appendicitis Status: Acute - Plan Acute appendicitis Noted on CT scan. Surgery was consulted and pt is s/p appendectomy. - outpt follow-up with surgery. - pain control as needed. Acute on chronic COPD exacerbation The pt is on home oxygen. Has diffuse wheezing on exam. CXR with ? of right consolidation. - standing and as needed nebs. Resume Spiriva upon discharge. - on IV antibiotics. Switch to PO Levaquin. - IV Solumedrol. Switch to prednisone pulse taper. - incentive spirometry, encourage ambulation. HTN Uncontrolled. Exacerbated by appendicitis. Improved. - lisinopril 10 mg daily. Adjust as needed. - clonidine as needed. - follow up with PCP. Urinary retention The pt has a history of prostate problems. - straight cath as needed. Urinating well on the day of discharge. - continue Flomax. PPx: Per surgery
--- NOTE | 2017-10-16 10:54 | P.PNGS ---
Subjective Patient reports: feels better, pain is less, flatus Physical Exam Vital signs: Vital Signs 10/15/17 11:32 10/15/17 11:34 10/15/17 12:00 Temperature 97.4 F L Pulse Rate 83 102 H Respiratory Rate 19 20 Blood Pressure 202/100 H Pulse Oximetry 93 L 90 L 10/15/17 16:00 10/15/17 19:57 10/15/17 20:00 Temperature 98.0 F 97.8 F Pulse Rate 96 H 96 H 92 H Respiratory Rate 17 18 19 Blood Pressure 152/70 H 130/62 Pulse Oximetry 94 L 94 L 10/16/17 08:00 10/16/17 08:11 Temperature 97.2 F L Pulse Rate 67 99 H Respiratory Rate 16 16 Blood Pressure 126/62 Pulse Oximetry 95 94 L Intake & Output 10/15/17 10/16/17 10/16/17 18:59 06:59 18:59 Intake Total 100 / 100 50 / 50 50 / 50 Output Total 1100 / 1100 350 / 350 Balance -1000 / -1000 -300 / -300 50 / 50 Intake: IV 100 / 100 50 / 50 50 / 50 Zosyn 3.375 GM Premix 50 ML @ 100 / 100 50 / 50 50 / 50 100 mls/hr IV.SIG Q6H SHIV Rx#: [id number] Output: Urine 350 / 350 Urine Amount (Catheter) 1100 / 1100 Straight 1100 / 1100 - Routine Abdominal Exam Present: soft (scant dry blood, incisional tenderness) - Urinary Catheter Management Straight Cath placed during this visit: yes, but has since been removed by the nurse Reason for continuing: Not indwelling catheter Insertion date: 10/15/17 Insertion time: 16:00 Removal date: 10/15/17 Removal time: 16:20 Assessment and Plan - Plan POD 1 Lap appy doing well urinary retention over night PLAN Reg diet oob po pain control medical mgnt for pulm and urinary retention ok to d/c per surgery , fu 1 week
--- NOTE | 2017-10-16 16:57 | MP ---
cc: Alec Leslie MD DATE OF OPERATION: 10/15/2017 PREOPERATIVE DIAGNOSES: Abdominal pain, acute appendicitis. POSTOPERATIVE DIAGNOSES: Abdominal pain, acute appendicitis. PROCEDURE PERFORMED: Laparoscopic appendectomy. SURGEON: Alec Leslie MD NEWS CLIPPING CUTTER: See OR sheet. ANESTHESIA: GETA. INTRAVENOUS FLUIDS: See anesthesia sheet. ESTIMATED BLOOD LOSS: 5 mL. DRAINS: None. COMPLICATIONS: None. WOUND CLASSIFICATION: Clean/contaminated. SPECIMEN: Appendix. FINDINGS: A long indurated appendix, acute appendicitis. INDICATIONS FOR PROCEDURE: The patient is a 66-year-old male who has several medical issues and presented with acute onset abdominal pain. He had CT scan findings of acute appendicitis. Therefore, a decision for a laparoscopic appendectomy. DETAILS OF PROCEDURE: The patient was taken to the operating suite and placed in supine position. He was prepped and draped in usual sterile fashion after induction of general endotracheal anesthesia. A brief timeout was done, stating correct patient, procedure and surgical site. We were all in agreement with this. Attention was first directed to the umbilicus where local anesthetic was injected and an 11 blade used to make a stab darnell incision at the umbilicus. A Veress needle was placed. Intra-abdominal placement was confirmed with a saline drop test. The abdomen was insufflated to 15 mm pneumoperitoneum. The Veress needle was changed for a 5 mm scope. A Visiport Optiview scope was used to enter the abdomen safely, and on cursory inspection, there was no evidence of injury. The abdomen was insufflated to 15 mm of pneumoperitoneum. Two other ports were placed, one 5 mm suprapubic, followed by a left lower quadrant 12 mm port. The patient was placed in Trendelenburg and airplaned to the left. The right lower quadrant was examined and explored. The appendix was identified. A small window was made at the base of the mesoappendix with electric Bovie cautery and a [place]. A JOHN stapler 35 was used to transect the base of the appendix. The base of the mesoappendix was also transected with the Endo-JOHN stapler. Hemostasis was obtained. The appendix was placed in an EndoCatch bag and removed from the abdomen. Suction irrigation was done until the effluent was clear. Next, the pneumoperitoneum was removed. The left lower quadrant 12 mm port was closed with 0 Vicryl and 4-0 Monocryl used for all subcuticular sutures at all ports. A sterile dressing was then placed. The patient tolerated the procedure well. All lap and instrument counts were correct. No complications. The patient was extubated and taken stable to the PACU. MD RAFAEL Vyas/danielle , 03:39 PM , 03:49 PM
== END 2017-10-16 10:28 | disposition home or self-care (01) ==
LOC: PHED 18:25 → PHEDA 21:18 → N07 10-15 06:02
PROVIDERS: ADMIT Hospitalist; ATTEND Hospitalist
PROC: LAPAPPY (ICD-10-PCS; 2017-10-15 03:36)